=== PATIENT | female | born 1990 | race Hispanic/Latino ===

== ENCOUNTER 2018-07-27 13:08 | Emergency (ER) | payer OTHER ==
[2018-07-27] MEDS ORDERED: LIDOCAINE HCL 1% 20 ML VIAL ONE (13:16)
[2018-07-27] MEDS ORDERED: TETANUS/DIPHTHERIA TOXOID [ADULT] 0.5 ML VIAL IM ONE (13:19)
== END 2018-07-27 13:59 | disposition home or self-care (01) ==
LOC: EDH 13:08
DX: S61.012A Laceration without foreign body of left thumb without damage to nail, initial encounter (principal); W26.0XXA Contact with knife, initial encounter; Y93.89 Activity, other specified; Y92.009 Unspecified place in unspecified non-institutional (private) residence as the place of occurrence of the external cause; Y99.8 Other external cause status
CPT/HCPCS: 12002; 73140; 90471; 90714